=== PATIENT | female | born 1945 | race Caucasian/White ===

== ENCOUNTER 2017-01-04 08:20 | Emergency (ER) | payer OTHER ==
[~2017-01-04] VITALS: Ht 162.6 cm; Wt 82.9 kg
[~2017-01-04 08:20] MED LIST: ALBU18HF INH; CHOL40002 PO; CYAN100028 PO; MAGN400T7 PO; OMEG-69 PO; TURM500C7 PO; UBID100C24 PO; VITA400C42 PO
[2017-01-04 08:21] VITALS: BP 151/86
[2017-01-04] MEDS ORDERED: BUDE10.2 INH (09:11)
== END 2017-01-04 09:22 | disposition home or self-care (01) ==
LOC: ED 09:15
DX: M17.12 Unilateral primary osteoarthritis, left knee (principal); Z88.0 Allergy status to penicillin; Z88.1 Allergy status to other antibiotic agents
CPT/HCPCS: 99284

== ENCOUNTER → 2018-10-17 | Outpatient (CLI) | payer OTHER ==
[~2018-10-17] MED LIST changes: +BUDE10.2 INH
== END | disposition home or self-care (01) ==
LOC: CFH 15:41
PROVIDERS: ATTEND Nurse Practitioner Family
DX: J47.9 Bronchiectasis, uncomplicated (principal); R91.1 Solitary pulmonary nodule
CPT/HCPCS: 71250